=== PATIENT | female | born 1980 | race Caucasian/White ===

== ENCOUNTER 2017-03-31 07:57 | Emergency (ER) | payer MEDICAID ==
[~2017-03-31] VITALS: Ht 154.9 cm; Wt 59.0 kg
[~2017-03-31 07:57] MED LIST: LORA-205 PO; NOR10T PO; OLAN20TA13 PO
[2017-03-31] MEDS ORDERED: HYDROcodone-ACET 10/325MG TAB PO ONE (08:45)
[2017-03-31] MEDS ORDERED: ceFAZolin 1GM VL ONE (08:45)
[2017-03-31] MEDS ORDERED: ceFAZolin IM 1GM/2.5ML STERILE WATER IM ONE (08:45)
[2017-03-31] MEDS ORDERED: ceFAZolin 1GM/50ML D5W 50 ML IV ONE (08:45)
[2017-03-31 10:55] VITALS: BP 118/74
== END 2017-03-31 13:10 | disposition home or self-care (01) ==
LOC: ER 08:02
DX: L03.114 Cellulitis of left upper limb (principal); L02.414 Cutaneous abscess of left upper limb; F17.210 Nicotine dependence, cigarettes, uncomplicated; K21.9 Gastro-esophageal reflux disease without esophagitis; F12.10 Cannabis abuse, uncomplicated; F11.20 Opioid dependence, uncomplicated; Z87.440 Personal history of urinary (tract) infections; Z98.51 Tubal ligation status
CPT/HCPCS: 10060; 73200; 96372; 99284; J0690

== ENCOUNTER 2017-08-05 00:31 | Emergency (ER) | payer MEDICAID ==
[~2017-08-05] VITALS: Ht 154.9 cm; Wt 54.9 kg
[2017-08-05 00:42] VITALS: BP 112/68
== END 2017-08-05 02:27 | disposition left against medical advice (07) ==
LOC: ER 00:32
DX: L02.414 Cutaneous abscess of left upper limb (principal); K21.9 Gastro-esophageal reflux disease without esophagitis; F17.210 Nicotine dependence, cigarettes, uncomplicated; F12.10 Cannabis abuse, uncomplicated; F11.20 Opioid dependence, uncomplicated; Z98.51 Tubal ligation status; Z53.29 Procedure and treatment not carried out because of patient's decision for other reasons

== ENCOUNTER 2017-10-21 00:01 | Inpatient (IN) | payer MEDICAID ==
[~2017-10-21] VITALS: Ht 152.4 cm; Wt 54.0 kg
[2017-10-21] MEDS ORDERED: IBUPROFEN 600 MG TAB PO ONE (00:30)
[2017-10-21 01:43] LABS: Eosinophils # (auto) 0 uL; Mean Corpuscular Hemoglobin 26.2 pg (28.0-32.0); Mean Corpuscular Hgb Conc. 32.6 g/dL (32.0-36.0)
[2017-10-21 01:44] LABS: Basophils # (auto) 0.1 uL; Basophils % (auto) 0.3 % (0.0-2.0); Eosinophils % (auto) 0.1 % (0.0-7.0); Hematocrit 35.2 % (36.0-46.0); Hemoglobin 11.5 g/dL (12.2-16.2); Lymphocytes # (auto) 2.2 uL; Lymphocytes % (auto) 11.9 % (10.0-50.0); Mean Corpuscular Volume 80.4 fL (80.0-100.0); Monocytes # (auto) 2.4 uL; Monocytes % (auto) 13.1 % (0.0-12.0); Neutrophils # (auto) 13.8 uL; Neutrophils % (auto) 74.6 % (37.0-80.0); Nucleated Red Blood Cells % 0.1 %; Platelet Count (auto) 390 10^3/uL (140-450); Red Blood Cells 4.37 10^6/uL (4.0-5.20); Red Cell Distribution Width 15.7 % (11.8-14.3); White Blood Cell 18.5 10^3/uL (4.4-10.8)
[2017-10-21] MEDS ORDERED: SODIUM CHLORIDE 0.9% 2,000 ML IV ONE (03:19)
[2017-10-21] MEDS ORDERED: cefTRIAXone 1GM/10ml IVPUSH 10 ML IV ONE (03:30)
[2017-10-21 03:48] LABS: INR 1.15 (0.9-1.15); Partial Thromboplastin Time 31.5 sec (22.64-33.71); Prothrombin Time 12.6 sec (9.37-12.3)
[2017-10-21 04:01] LABS: Albumin 3.1 g/dL (3.4-5.0); BUN/Creatinine Ratio 16.2; Calcium 8.5 mg/dL (8.5-10.1); Potassium 4.1 mmol/L (3.5-5.1)
[2017-10-21 04:03] LABS: Bilirubin, Total 0.5 mg/dL (0.2-1.0); Total Protein 7.9 g/dL (6.4-8.2)
[2017-10-21] MEDS: SODIUM CHLORIDE 0.9% 1,000 ML IV SCH ×2 (06:10→19:21)
[2017-10-21] MEDS ORDERED: ACETAMINOPHEN 325 MG TAB PO PRN (06:30)
[2017-10-21] MEDS ORDERED: VANCOMYCIN PER PHARMACY 0 MG IV SCH (06:30)
[2017-10-21] MEDS ORDERED: HYDROcodone-ACET 5/325MG TAB PO PRN (06:30)
[2017-10-21] MEDS ORDERED: TEMAZEPAM 15 MG CAP PO PRN (06:30)
[2017-10-21] MEDS ORDERED: VANCOMYCIN 1,250 MG in D5W 5% 250 ML IV SCH (08:00)
[2017-10-21] MEDS: MORPHINE SULF INJ 2 MG/ML SYRINGE 1ML IV PRN ×3 (08:49→21:09)
[2017-10-21] MEDS: ONDANSETRON HCL 4 MG/2 ML VIAL IV PRN ×3 (08:51→21:09)
[2017-10-21] MEDS: FAMOTIDINE 20 MG TAB PO SCH ×2 (10:17→21:08)
[2017-10-21] MEDS: cefTRIAXone 1GM/10ml IVPUSH 10 ML IV SCH (10:55)
[2017-10-21] MEDS: CLINDAMYCIN 600MG IV 50 ML IV SCH ×2 (14:44→21:08)
[2017-10-21 22:00] VITALS: BP 98/58
[2017-10-22 01:01] VITALS: BP 98/58
[2017-10-22] MEDS: MORPHINE SULF INJ 2 MG/ML SYRINGE 1ML IV PRN ×3 (01:46→09:38)
[2017-10-22 05:00] VITALS: BP 115/72
[2017-10-22] MEDS: SODIUM CHLORIDE 0.9% 1,000 ML IV SCH (05:14)
[2017-10-22] MEDS: CLINDAMYCIN 600MG IV 50 ML IV SCH ×2 (05:14→14:00)
[2017-10-22 06:42] LABS: Eosinophils # (auto) 0 uL; Hemoglobin 10.8 g/dL (12.2-16.2); Neutrophils # (auto) 9.8 uL
[2017-10-22 06:46] LABS: Basophils # (auto) 0 uL; Basophils % (auto) 0.3 % (0.0-2.0); Eosinophils % (auto) 0.2 % (0.0-7.0); Hematocrit 33.1 % (36.0-46.0); Lymphocytes # (auto) 1.6 uL; Mean Corpuscular Hemoglobin 26.2 pg (28.0-32.0); Mean Corpuscular Hgb Conc. 32.5 g/dL (32.0-36.0); Mean Corpuscular Volume 80.6 fL (80.0-100.0); Monocytes % (auto) 7.8 % (0.0-12.0); Neutrophils % (auto) 78.7 % (37.0-80.0); Nucleated Red Blood Cells % 0.1 %; Platelet Count (auto) 351 10^3/uL (140-450); Red Blood Cells 4.11 10^6/uL (4.0-5.20); Red Cell Distribution Width 15.9 % (11.8-14.3); White Blood Cell 12.4 10^3/uL (4.4-10.8)
[2017-10-22 06:57] LABS: Potassium 3.6 mmol/L (3.5-5.1)
[2017-10-22 07:01] LABS: Albumin 2.4 g/dL (3.4-5.0); BUN/Creatinine Ratio 22.6; Calcium 8.5 mg/dL (8.5-10.1)
[2017-10-22 07:05] LABS: Bilirubin, Total 0.2 mg/dL (0.2-1.0); Total Protein 7.5 g/dL (6.4-8.2)
[2017-10-22 08:39] VITALS: BP 116/84
[2017-10-22] MEDS: cefTRIAXone 1GM/10ml IVPUSH 10 ML IV SCH (09:38)
[2017-10-22] MEDS: FAMOTIDINE 20 MG TAB PO SCH (09:38)
[2017-10-22 11:00] LABS: Alcohol, Urine < 3.0 mg/dL (0-5); Barbiturate Scree,Urine NEGATIVE (NEGATIVE); Benzodiazephine Screen, Urine NEGATIVE (NEGATIVE); Cocaine Screen, Urine NEGATIVE (NEGATIVE); Phencyclidine Screen, Urine NEGATIVE (NEGATIVE)
[2017-10-22 11:44] LABS: Opiate Scree,Urine POSITIVE (NEGATIVE)
[2017-10-22 11:45] LABS: Amphetamine Screen, Urine POSITIVE (NEGATIVE); Cannabinoid Screen, Urine POSITIVE (NEGATIVE)
[2017-10-22 12:54] VITALS: BP 102/64
== END 2017-10-22 16:00 | disposition left against medical advice (07) | DRG 720 ==
LOC: ER 00:03 → OVERFLOW 00:04 → WEST WING 19:30
PROVIDERS: ADMIT Nurse Practitioner; ATTEND Internal Medicine
DX: A41.9 Sepsis, unspecified organism (principal); E44.0 Moderate protein-calorie malnutrition; E87.1 Hypo-osmolality and hyponatremia; E88.09 Other disorders of plasma-protein metabolism, not elsewhere classified; L03.114 Cellulitis of left upper limb; L02.414 Cutaneous abscess of left upper limb; E78.5 Hyperlipidemia, unspecified; F11.90 Opioid use, unspecified, uncomplicated; F12.90 Cannabis use, unspecified, uncomplicated; F41.9 Anxiety disorder, unspecified; F17.210 Nicotine dependence, cigarettes, uncomplicated; J98.11 Atelectasis; K21.9 Gastro-esophageal reflux disease without esophagitis; L02.413 Cutaneous abscess of right upper limb; Z83.3 Family history of diabetes mellitus; Z98.51 Tubal ligation status; Z80.9 Family history of malignant neoplasm, unspecified; Z88.0 Allergy status to penicillin
CPT/HCPCS: 36415; 71045; 73200; 80053; 80307; 84484; 84702; 85025; 85610; 85652; 85730; 86141; 87040; 87205; 96374; 96375; 96376; J2405; J3490; J7060

== ENCOUNTER 2018-06-24 22:51 | Emergency (ER) | payer MEDICAID ==
[~2018-06-24] VITALS: Ht 154.9 cm; Wt 54.4 kg
[2018-06-24 23:21] VITALS: BP 98/55
[2018-06-25] MEDS ORDERED: LIDOCAINE 1% HCL (LOCAL ANESTH.) INJ 20ML MDV IJ ONE (00:45)
[2018-06-25] MEDS ORDERED: cefTRIAXone SOD 1,000 MG VL IM ONE (00:45)
== END 2018-06-25 03:21 | disposition home or self-care (01) ==
LOC: ER 22:59
DX: L02.413 Cutaneous abscess of right upper limb (principal); F17.210 Nicotine dependence, cigarettes, uncomplicated; F12.10 Cannabis abuse, uncomplicated; F14.10 Cocaine abuse, uncomplicated; K21.9 Gastro-esophageal reflux disease without esophagitis; Z88.0 Allergy status to penicillin
CPT/HCPCS: 10060; 96372; 99283; J0696

== ENCOUNTER 2020-02-14 18:25 | Emergency (ER) | payer MEDICAID ==
[~2020-02-14] VITALS: Ht 154.9 cm; Wt 59.0 kg
[2020-02-14 18:33] VITALS: BP 118/64
== END 2020-02-14 20:21 | disposition left against medical advice (07) ==
LOC: ER 18:25
DX: S00.86XA Insect bite (nonvenomous) of other part of head, initial encounter (principal); Z53.21 Procedure and treatment not carried out due to patient leaving prior to being seen by health care provider; W57.XXXA Bitten or stung by nonvenomous insect and other nonvenomous arthropods, initial encounter; Y93.89 Activity, other specified; Y92.89 Other specified places as the place of occurrence of the external cause; Y99.8 Other external cause status

== ENCOUNTER 2020-02-14 22:57 | Emergency (ER) | payer MEDICAID ==
[~2020-02-14] VITALS: Ht 154.9 cm; Wt 59.0 kg
[2020-02-14 23:32] VITALS: BP 105/59
[2020-02-15 00:16] LABS: Basophils # (auto) 0 10 ^3/uL (0-0.2); Basophils % (auto) 0.4 % (0.0-2.0); Eosinophils # (auto) 0.2 10 ^3/uL (0-0.8); Eosinophils % (auto) 2.2 % (0.0-7.0); Hematocrit 39.3 % (36.0-46.0); Hemoglobin 13.1 g/dL (12.2-16.2); Lymphocytes # (auto) 2.7 10 ^3/uL (0.4-5.4); Lymphocytes % (auto) 33.1 % (10.0-50.0); Mean Corpuscular Hemoglobin 29.4 pg (28.0-32.0); Mean Corpuscular Hgb Conc. 33.4 g/dL (32.0-36.0); Mean Corpuscular Volume 88.1 fL (80.0-100.0); Monocytes # (auto) 0.8 10 ^3/uL (0-1.3); Monocytes % (auto) 9.5 % (0.0-12.0); Neutrophils # (auto) 4.5 10 ^3/uL (1.6-8.6); Neutrophils % (auto) 54.8 % (37.0-80.0); Nucleated Red Blood Cells % 0.1 %; Platelet Count (auto) 271 10^3/uL (140-450); Red Blood Cells 4.45 10^6/uL (4.0-5.20); Red Cell Distribution Width 13.9 % (11.8-14.3); White Blood Cell 8.3 10^3/uL (4.4-10.8)
[2020-02-15 00:31] LABS: Albumin 3.5 g/dL (3.4-5.0); BUN/Creatinine Ratio 17.6; Calcium 9.1 mg/dL (8.5-10.1)
[2020-02-15 00:34] LABS: Bilirubin, Total 0.3 mg/dL (0.2-1.0); Total Protein 8.2 g/dL (6.4-8.2)
[2020-02-15] MEDS ORDERED: ACYCLOVIR 400 MG TAB PO ONE (00:45)
[2020-02-15] MEDS ORDERED: methylPREDNISolone SOD SUCC 125 MG/2 ML VL IM ONE (00:45)
[2020-02-15 02:45] LABS: Urine Bacteria FEW /hpf (None Seen); Urine Blood Negative /uL (Negative); Urine Mucus FEW (None Seen); Urine Specific Gravity 1.037 (1.001-1.035); Urine WBC 3 /hpf (0 - 5)
[2020-02-15 03:06] LABS: Alcohol, Urine < 3.0 mg/dL (0-5); Amphetamine Screen, Urine POSITIVE (NEGATIVE); Barbiturate Scree,Urine NEGATIVE (NEGATIVE); Benzodiazephine Screen, Urine NEGATIVE (NEGATIVE); Cannabinoid Screen, Urine POSITIVE (NEGATIVE); Cocaine Screen, Urine NEGATIVE (NEGATIVE); Opiate Scree,Urine POSITIVE (NEGATIVE); Phencyclidine Screen, Urine NEGATIVE (NEGATIVE)
== END 2020-02-15 00:55 | disposition home or self-care (01) ==
LOC: ER 22:57
DX: R51 Headache (principal); R53.83 Other fatigue; R53.81 Other malaise; K21.9 Gastro-esophageal reflux disease without esophagitis; F17.210 Nicotine dependence, cigarettes, uncomplicated
CPT/HCPCS: 36415; 70450; 80053; 80307; 81001; 85025; 96372; 99284; J2930